=== PATIENT | male | born 1960 | race Caucasian/White ===

== ENCOUNTER 2020-05-23 16:56 | Outpatient (RCR) | payer MEDICARE, SELFPAY ==
[2020-05-23] MEDS: COVID-19 VACC, MRNA(PFIZER)/PF 30 MCG/0.3 ML SYRINGE IM (09:35)
[2020-06-13] MEDS: COVID-19 VACC, MRNA(PFIZER)/PF 30 MCG/0.3 ML SYRINGE IM (09:21)
== END 2020-08-15 23:59 ==
LOC: IMMUN 16:56
PROVIDERS: Visit Provider Family Medicine
DX: Z23 Encounter for immunization (principal)
CPT/HCPCS: 0001A; 0002A; 91300

== ENCOUNTER 2021-08-29 13:58 | Inpatient (IN) | payer OTHER, SELFPAY ==
[2021-08-29] VITALS (28 sets, daily range): BP systolic 94–146; BP diastolic 63–107; PULSE 63–82; RESP 12–20; TEMP 36.6; O2SAT 18–100; BMI 23.9; BMI 23.5
--- NOTE | 2021-08-29 14:18 | NURSING ---
NO OLD EKGS
--- NOTE | 2021-08-29 14:29 | NURSING ---
DR BARBARA RANGEL
--- NOTE | 2021-08-29 14:34 | EKG12_ITS ---
Test Reason : ELEVATED TROPONIN Blood Pressure : / mmHG Vent. Rate : 065 BPM Atrial Rate : 065 BPM P-R Int : 130 ms QRS Dur : 088 ms QT Int : 426 ms P-R-T Axes : 039 -01 115 degrees QTc Int : 443 ms Normal sinus rhythm Anteroseptal infarct , age undetermined T wave abnormality, consider lateral ischemia Abnormal ECG Confirmed by WHIT NIEVES, ANGELICA ([id number]), communications editor AKILAH WHEATLEY ([id number]) on 08/31/2021 11:29:04 AM Referred By: MONCHO Confirmed By:ANGELICA SHERMAN MD
--- NOTE | 2021-08-29 14:34 | EX.ED.DYSGE1 ---
HPI History of Present Illness Chief Complaint: Abn Labs Informant: patient Onset/Context/Timing Onset: Days (3) Timing: Intermittent Quality: Dull Location: Substernal Worsened by: Nothing Relieved by: Nothing Narrative Narrative: Patient presents with elevated troponin that was noticed today. Patient was having chest pain 2 days ago and yesterday. Patient went to the [facility] yesterday and had lab work and EKG ordered. Patient's troponin came back elevated over 34,000. Patient was instructed come to the emergency department. Currently, the patient denies any symptoms. He denies chest pain or shortness of breath. He denies nausea or vomiting. He denies any diaphoresis. Patient states he feels fine. PFSH PFSH Medical History no medical history Home Medications NK 08/29/21 [History Last Taken Unknown] Allergy/AdvReac Type Severity Reaction Status Date / Time No Known Allergies Allergy Verified 08/29/21 14:02 Social History Smoking Status: Current every day smoker tobacco type: cigarettes ROS ROS ED Constitutional Constitutional ED: Denies chills or fever(s) Eyes Eyes: Denies blurry vision or change in vision ENT ENT ED: Denies rhinorrhea or sore throat Cardiovascular Cardiovascular: Denies chest pain or palpitations Respiratory/Chest Respiratory/Chest: Denies cough or dyspnea Gastrointestinal Gastrointestinal: Denies nausea or vomiting Genitourinary Genitourinary ED: Denies dysuria or hematuria Musculoskeletal Musculoskeletal: Denies back pain or neck pain Integumentary Denies abscess or rash Neurologic Neurologic: Denies headache(s) or weakness Allergic/Immunologic Allergic/Immunologic ED: Denies mouth swelling or urticaria EXAM Physical Exam Const Vital Signs: 08/29/21 14:00 08/29/21 14:30 08/29/21 14:31 Temperature 98 F Temperature Source Temporal Pulse Rate 82 67 Respiratory Rate 16 12 Respiratory Effort Normal Non-Labored Blood Pressure 121/81 H 106/80 Blood Pressure Mean 94 88 Pulse Ox 99 96 Oxygen Delivery Method Room Air Room Air 08/29/21 14:35 08/29/21 14:44 08/29/21 14:46 Temperature 98 F Temperature Source Temporal Pulse Rate 67 Respiratory Rate 12 Respiratory Effort Blood Pressure 106/80 Blood Pressure Mean Pulse Ox 98 98 Oxygen Delivery Method Room Air Room Air Room Air Positive well nourished and well developed General Appearance ED: well developed HEENT Reports moist mucous membranes Neck supple and no JVD Resp normal respiratory effort and clear to auscultation bilaterally Cardio regular rate, regular rhythm and no murmurs GI normal to inspection, nondistended, normoactive bowel sounds and non-tender Palpation: soft Extremity normal to inspection General Extremety ED: Negative for edema or tenderness General Extremity: Negative for edema Neuro oriented x3, CN's II-XII intact bilaterally and no sensory deficits noted Sensorium / Orientation: alert Motor Exam: strength 5/5 throughout Psych mental status grossly normal Skin no rashes or lesions noted MDM MDM MDM Narrative Medical decision making narrative: EKG was obtained. On my interpretation, it shows a normal sinus rhythm with a rate of 65. There are Q waves noted in leads V1, V2, and V3. There is T wave inversion in leads V1 through V4 5. There is also T wave inversion in leads I and aVL. There is [address] elevation in leads V1, V2, and V3. TX interval, QRS interval, and QTc intervals were normal. [place] was normal. Troponin from earlier today was reviewed and was 34,712. Case was discussed with Dr. Amaral. He was in to see the patient. He will take the patient to the Stuffing Machine Operator. He recommended giving the patient heparin. Patient already had aspirin today. This was ordered. Case was discussed with the hospitalist. Lab Data Labs: Laboratory Results - last 24 hr 08/29/21 08/29/21 08/29/21 14:35 14:35 14:35 WBC 10.4 RBC 4.51 L Hgb 13.2 Hct 39.8 L MCV 88.2 MCH 29.3 MCHC 33.2 RDW Std Deviation 46.5 H RDW Coeff of Anthony 14.5 Plt Count 214 MPV 10.4 Immature Gran % (Auto) 0.300 Neut % (Auto) 54.0 Lymph % (Auto) 32.7 [place] % (Auto) 12.3 H Eos % (Auto) 0.3 Baso % (Auto) 0.4 Absolute Neuts (auto) 5.6 Absolute Lymphs (auto) 3.41 Nucleated RBC % 0 PT 13.5 INR 1.1 APTT 26.6 Sodium 136 Potassium 3.9 Chloride 105 Carbon Dioxide 26.0 Anion Gap 5 BUN 18 Creatinine 1.13 Estim Creat Clear Calc 67.78 Est GFR (MDRD) Af Amer 84 Est GFR (MDRD) Non-Af 70 BUN/Creatinine Ratio 15.9 Glucose 102 Calcium 9.0 Troponin I High Sens 52159 H* Critical Care Time Critical Care Time: Yes Critical care time (excluding procedures): 30-74 minutes (31), Including time spent:, Discussing w/Patient &/or Family/Computer Numerical Control Grinder, Discussing w/Consultants, Arranging Admission or Transfer and Performing Direct Patient Care at Bedside Discharge Plan Dx/Rx/DC Orders Clinical Impression: Non-ST elevated myocardial infarction (non-STEMI), Elevated troponin Disposition Disposition: Acute Care Hospital [facility] Discharge Date/Time: 08/29/21 14:51
[2021-08-29 14:44] LABS: Absolute Lymphocyte Count 3.41 X10^3/uL (0.83-4.51); Absolute Neutrophil Count 5.6 X10^3/uL (2.0-7.7); Basophil# 0.04 X10^3/uL; Basophil% 0.4 % (0-1); Eosinophil# 0.03 X10^3/uL; Eosinophils% 0.3 % (0-5); Hematocrit 39.8 % (40-54); Hemoglobin 13.2 g/dL (13.0-16.5); Lymphocyte # 3.41 X10^3/ul (0.83-4.51); Lymphocyte % 32.7 % (19-41); Mean Corp Hgb Conc 33.2 g/dL (32-36); Mean Corpuscular Hgb 29.3 pg (27.0-32.0); Mean Corpuscular Volume 88.2 fL (80-94); Mean Platelet Vol. 10.4 fl (6.2-12.0); Monocyte# 1.28 X10^3/uL; Monocyte% 12.3 % (0-10); NRBC Flagged by Analyzer 0 % (0-5); Neutrophil # 5.63 X10^3/uL (2.7-7.7); Platelet Count 214 K/mm3 (150-450); RBC Distribution Width CV 14.5 % (11.6-14.6); RBC Distribution Width SD 46.5 fl (35.1-43.9); Red Blood Count 4.51 M/mm3 (4.6-6.2); White Blood Count 10.4 K/mm3 (4.4-11.0)
[2021-08-29] MEDS: Heparin Injection (Vial) 5,000 UNIT/ML VIAL 4000 UNIT IV (14:44)
--- NOTE | 2021-08-29 14:47 | NURSING ---
PAIN MANAGEMENT SPECIALIST BELAL CHEST PAIN
--- NOTE | 2021-08-29 14:51 | NURSING ---
DR PINTO FOR DR SOLIS
[2021-08-29 14:59] LABS: International Normalized Ratio 1.1; Prothrombin Time (Protime)PT. 13.5 SECONDS (11.7-14.9)
[2021-08-29 15:00] LABS: Partial Thromboplast Time 26.6 Seconds (24.1-36.2)
[2021-08-29 15:59] LABS: Anion Gap 5 (5-15); BUN 18 mg/dL (7-18); BUN/Creat Ratio 15.9 RATIO (10-20); Chloride 105 mmol/L (98-107); Creatinine, Serum 1.13 mg/dL (0.70-1.30); EST Glomerular Filtration Rate 70 mL/min (>60); Est Glom Filt Rate - Afr Amer 84 mL/min (>60); Estimated Creatinine Clearance 67.78 ml/min; Glucose 102 mg/dL (74-106); Potassium 3.9 mmol/L (3.5-5.1); Sodium Level 136 mmol/L (136-145); Troponin-I HS 24659 pg/mL (3.0-78.0)
--- NOTE | 2021-08-29 16:46 | HP.PCM.HOS_ITS ---
HPI - General General Date of Admission: 08/29/21 Date of Service: 08/29/21 Chief Complaint: Abnormal blood work - 1 day Chest pain - 3 days HPI Narrative JAKE MISHRA, is a 60 M who presents with the above. Patient is a chronic smoker with no significant past medical history. He woke up 3 days ago at 5:30 AM with complaints of left-sided chest discomfort associated with diaphoresis. Patient decided to rest as he was concerned about hospital bills. The next day went to see a physician at [facility]. He was asked to do EKG and blood work. He came home to rest. This morning he came to do the blood work and then he went home. He was resting at home when he was told to come to the hospital because of abnormal blood work. His blood pressure is 121/81, heart rate 82, SPO2 99% on room air, temperature 98F. His WBC count was 10.4, hemoglobin 13.2, platelet count 214, sodium 136, potassium 3.9, chloride 105, carbon 26, BUN 18, creatinine 1.13. [place] [id number], repeat troponin was 89798. Total cholesterol 237, LDL 168, HDL 47. EKG showed Q waves in V1, V2, V3 with T wave inversions in V1, V2, V3 as well as lead I and aVL. Patient was taken emergently to the Competitive Athlete and findings showed subtotal occ lusion of the mid LAD at the site of the diagonal and high-grade 90% stenosis of the circumflex artery. He received aspirin and Brilinta as well as Integrilin and heparin. He had FACUNDO to the left circumflex artery as well as to stents overlapping to the subtotal LAD. There was evidence of diffuse disease in the distal portion of the LAD. Patient was seen in the ICU postprocedure. He denied any chest pain or dizziness or palpitations. He felt improved. [facility] Medical History (Updated 08/29/21 @ 17:31 by Jessie Dillard) Chest pain Myocardial infarct Smoker Substance abuse Medical History no medical history Home Medications NK 08/29/21 [History Last Taken Unknown] Allergy/AdvReac Type Severity Reaction Status Date / Time No Known Allergies Allergy Verified 08/29/21 14:02 Family History (Updated 08/29/21 @ 17:[address] Renita Castillo MD) Mother Colon cancer Heart disease Myocardial infarction Father CAD (coronary artery disease) Social History (Updated 08/29/21 @ 17:[address] Renita Castillo MD) household members: spouse Smoking Status: Current every day smoker tobacco type: cigarettes alcohol intake: former ROS ROS Narrative Constitutional: Denies: Anorexia, Chills, Fever, Night Sweats, Weight Change Eyes: Denies: Blurred vision, Cataracts, Conjunctivae Inflammation, Pain, Redness, Vision Change HEENT: Denies: Difficulty Hearing, Difficulty Swallowing, Head Aches, Hearing Changes, Sinus Congestion, Sinus Drainage Cardiovascular: See HPI Respiratory: Denies: Cough, Shortness of breath at rest, Sputum production Gastrointestinal: Denies: Abdominal Pain, Nausea, Vomiting Genitourinary: Denies: Dysuria Musculoskeletal: Denies: Joint Pain, Joint stiffness, Joint swelling, Joint Tenderness Skin: Denies: Rash, Wounds Neurological: Denies: Numbness, Tingling, Focal weakness Vital Signs Vital Signs Vital Signs: 08/29/21 14:00 08/29/21 14:30 08/29/21 14:31 Temperature 98 F Temperature Source Temporal Pulse Rate 82 67 Respiratory Rate 16 12 Respiratory Effort Normal Non-Labored Blood Pressure 121/81 H 106/80 Blood Pressure Mean 94 88 Pulse Ox 99 96 Oxygen Delivery Method Room Air Room Air 08/29/21 14:35 08/29/21 14:44 08/29/21 14:46 Temperature 98 F Temperature Source Temporal Pulse Rate 67 Respiratory Rate 12 Respiratory Effort Blood Pressure 106/80 Blood Pressure Mean Pulse Ox 98 98 Oxygen Delivery Method Room Air Room Air Room Air Weight Weight: 73.482 kg Body Mass Index (BMI) 23.9 Physical Exam Narrative Physical exam: General: Alert, Oriented x3, Cooperative, No apparent distress HEENT: Atraumatic Oral: Moist Mucosa Neck: Supple Lungs: Clear to auscultation Cardiovascular: HS I+II, regular, no murmurs Abdomen: Bowel Sounds Present, Soft, Non Tender Extremities: No edema, TR band over the right wrist Skin: No rashes, No breakdown Neurological: Grossly intact Psych/Mental Status: Appropriate Results Lab / Micro Data Result Diagrams: 08/29/21 14:35 08/29/21 14:35 Labs: Laboratory Results - last 24 hr 08/29/21 14:35: WBC 10.4, RBC 4.51 L, Hgb 13.2, Hct 39.8 L, MCV 88.2, MCH 29.3, MCHC 33.2, RDW Std Deviation 46.5 H, RDW Coeff of Anthony 14.5, Plt Count 214, MPV 10.4, Immature Gran % (Auto) 0.300, Neut % (Auto) 54.0, Lymph % (Auto) 32.7, [place] % (Auto) 12.3 H, Eos % (Auto) 0.3, Baso % (Auto) 0.4, Absolute Neuts (auto) 5.6, Absolute Lymphs (auto) 3.41, Nucleated RBC % 0 08/29/21 14:35: Sodium 136, Potassium 3.9, Chloride 105, Carbon Dioxide 26.0, Anion Gap 5, BUN 18, Creatinine 1.13, Estim Creat Clear Calc 67.78, Est GFR (MDRD) Af Amer 84, Est GFR (MDRD) Non-Af 70, BUN/Creatinine Ratio 15.9, Glucose 102, Calcium 9.0, Troponin I High Sens [id number] H* 08/29/21 14:35: PT 13.5, INR 1.1, APTT 26.6 Assessment & Plan Assessment/Plan (1) Non-ST elevated myocardial infarction (non-STEMI): (2) Elevated troponin: PLAN: Plan 1. Acute NSTEMI/unstable angina, in a chronic smoker No other risk factors such as diabetes or hypertension Patient presented with abnormal EKG and markedly elevated troponin Status post emergent cardiac catheterization and findings showed subtotal mid LAD as well as 90% stenosis of the left circumflex Status post FACUNDO to left circumflex and 2 FACUNDO to the LAD Patient will be monitored overnight in the ICU Continue on aspirin, Brilinta, statin, ENRIQUE inhibitor, beta-lara 2D echo in the a.m. Cardiology following 2. Hyperlipidemia, lipid profile from 08/29/2021 showed dyslipidemia Patient has been started on statins 3. Nicotine dependence, on replacement 3. DVT PPx- SCDs for now; possible Heparin SC in am if no bleeding risks exist Charges/Coding Visit Charges Inpatient E&M: 02872 Init Hosp L3
--- NOTE | 2021-08-29 16:59 | PCIREPORT_ITS ---
PCI Cardiac Cath Report PCI Report: PCI procedures; 1. Successful PCI of high-grade 90% proximal left circumflex with predilatation using 2 x 15 mm balloon, followed by placement of drug-eluting stent 3 x 26 mm/FACUNDO/[place] Postdilated with 3.5 x 12 mm NC Emerge MR balloon, with reduction of stenosis to 0% and maintenance of MAI-3 flow. 2. Successful PCI of subtotal 99% mid LAD at the site of the diagonal with MAI I flow, with predilatation using 2 x 20 mm emerge MR balloon, followed by placement of drug-eluting stent 2.5 x 35 mm FACUNDO/[place]rsiro-[place] Overlap with 2.25 x 26 mm drug-eluting stent/FACUNDO/[place]iro, postdilated with 3.25 x 50 mm NC balloon and reduction of stenosis from subtotal to 0% and improvement in MAI flow from MAI I to MAI-3 There is diffuse distal LAD disease which is left alone with MAI-3 flow. 3. Placement of TR band to close the right radial artery arteriotomy site. Preprocedure diagnosis; 60-year-old patient who presented with non-ST elevation AL Evidently patient had ongoing symptoms of chest pain for 2 days, the patient went to the [facility] where he been evaluated by EKG as well as cardiac enzyme high sensitive troponin with significant elevated more than 3000 and was asked to come over to the ER here at the [facility] where an EKG showed evidence of age indeterminate anteroseptal AL with clear evidence of Q-wave noted in V1 V2 V3 and T wave inversion. Patient had a history of smoking He does not have any hypertension or diabetes and no history of coronary artery disease Consent; Risk and benefit of procedure explained detail informed consent obtained Diagnostic and interventional equipment used 1. And 6 Norwegian trauma sheath placed in the right radial artery 2. Cocktail of verapamil, heparin as nitroglycerin was given through the right common radial artery sheath 3. Diagnostic catheter 5 Norwegian [place] catheter 4. 5 Norwegian pigtail catheter 5. 6 Norwegian 300 XB guide catheter 6. 0.014 Ht whisper MS straight 190 cm guidewire 7. 0.014 run-through extra floppy 180 cm straight wire 8. 0.035 to 60 cm J exchange wire Interventional balloons and stents used; 1. 2 x 15 mm balloon. 2. 2 x 20 mm balloon emerge 3. 3 x 26 drug-eluting stent 4. 2.5 x 35 mm drug-eluting stent 6. 2.25 x 26 mm drug-eluting stent 7. 3 x 25 mm x 50 mm NC Emerge balloon 8. 3.5 x 12 mm NC balloon. Procedure in detail; Patient brought as an emergency to the Foundation Drill Operator Helper, Access obtained from the right radial artery, and then we proceed with a diagnostic catheter 5 Norwegian [place] catheter advanced to the ascending order under fluoroscopic guidance, cannulated the left main without difficulty multiple views left coronary system obtain In the same catheter was used to cannulate the right coronary ostium and 2 views for the RCA including MALAGASY and GOLDBERG cranial's were obtained Following this angiogram we were studied Identify the culprit as subtotal mid LAD at the site of the diagonal and high- grade 90% stenosis of the circumflex artery Patient was given heparin and ACT level acceptable Also patient started on Integrilin to bolus with Integrilin infusion creatinine clearance 70 with a serum creatinine 1.13 And patient was given aspirin and Brilinta 180 mg. In the Foundation Drill Operator Helper Then will proceed with interventional guide catheter using 6 Norwegian XB 3 oh. With the guidewire across the lesion in the proximal left circumflex followed by predilatation and placement of drug-eluting stent and postdilated using 3. 5 mm NC balloon He had excellent result to the left circumflex then we will proceed with the whisper wire across the lesion in the subtotal LAD predilate the lesion and placed 2 stents 2.5 x 35 overlap with 2.25 x 26 postdilated with 3 oh NC balloon and achieve good result and improvement of MAI flow from MAI I to MAI-3. There is a diffuse disease in the distal portion of the LAD which was left alone Pigtail catheter used and LVEDP measured which is elevated to 23 Patient was given Lasix IV. Conclusion and recommendations; 1. This is a very high risk patient with a high-grade lesion involving the LAD and a diagonal subtotal which is a culprit for his myocardial infarction However at the same time he had a high-grade lesion involving the circumflex therefore we decided to proceed with two-vessel PCI and to achieved excellent result With no complication in the Foundation Drill Operator Helper. 2. Patient will continue on Integrilin infusion over the night and intensive care unit 3. We will continue on dual antiplatelet therapy Brilinta/aspirin for 1 year 4. Patient will be scheduled for echocardiogram and series of cardiac enzymes with high sensitive troponin 5. We will start the patient on high-dose statin, beta-lara carvedilol and ENRIQUE inhibitor 6. Patient will be scheduled for phase 1 cardiac rehab 7. Patient advised cessation of smoking 8. Patient to follow-up with cardiovascular team at [facility] for continuation of cardiac care. No complication in the Foundation Drill Operator Helper Dipika Amaral MD,FACC,[facility]
--- NOTE | 2021-08-29 17:00 | EKG12_ITS ---
Test Reason : AM EKG Blood Pressure : / mmHG Vent. Rate : 067 BPM Atrial Rate : 067 BPM P-R Int : 130 ms QRS Dur : 090 ms QT Int : 408 ms P-R-T Axes : 054 020 110 degrees QTc Int : 431 ms Normal sinus rhythm Anteroseptal infarct , age undetermined T wave abnormality, consider lateral ischemia Abnormal ECG Confirmed by WHIT NIEVES, ANGELICA ([id number]), metropolitan editor AKILAH WHEATLEY ([id number]) on 08/31/2021 11:49:15 AM Referred By: MILLIE Confirmed By:ANGELICA SHERMAN MD
[2021-08-29] MEDS: 0.9% Normal Saline 1,000 ML 75 ML IV (18:00)
[2021-08-29 18:31] LABS: Hemoglobin A1c 5.8 % (3.8-5.6)
[2021-08-29] MEDS: Acetaminophen 325 MG Tablet 650 MG PO (19:28)
[2021-08-29] MEDS: Carvedilol 3.125 MG TABLET PO (20:50)
[2021-08-29] MEDS: Atorvastatin Calcium 40 MG Tablet PO (20:50)
[2021-08-30] VITALS (26 sets, daily range): BP systolic 91–122; BP diastolic 60–85; PULSE 57–75; RESP 14–21; TEMP 36.2–36.8; O2SAT 93–100
[2021-08-30 03:34] LABS: Absolute Lymphocyte Count 3.03 X10^3/uL (0.83-4.51); Absolute Neutrophil Count 4.2 X10^3/uL (2.0-7.7); Basophil# 0.03 X10^3/uL; Basophil% 0.4 % (0-1); Eosinophil# 0.08 X10^3/uL; Hematocrit 34.2 % (40-54); Hemoglobin 11.6 g/dL (13.0-16.5); Lymphocyte # 3.03 X10^3/ul (0.83-4.51); Mean Corp Hgb Conc 33.9 g/dL (32-36); Mean Corpuscular Volume 88.4 fL (80-94); Mean Platelet Vol. 10.5 fl (6.2-12.0); Monocyte# 0.85 X10^3/uL; Monocyte% 10.4 % (0-10); NRBC Flagged by Analyzer 0 % (0-5); Neutrophil # 4.19 X10^3/uL (2.7-7.7); Platelet Count 188 K/mm3 (150-450); RBC Distribution Width CV 14.6 % (11.6-14.6); RBC Distribution Width SD 47.2 fl (35.1-43.9); Red Blood Count 3.87 M/mm3 (4.6-6.2); White Blood Count 8.2 K/mm3 (4.4-11.0)
[2021-08-30 03:52] LABS: ALB/GLOB Ratio 0.8 RATIO (0.9-2.4); AST(SGOT) 135 U/L (15-37); Alanine Aminotransfer ALT/SGPT 77 U/L (16-61); Albumin, Serum 2.7 g/dL (3.2-5.0); Alkaline Phosphatase 72 U/L (45-117); Anion Gap 6 (5-15); BUN 21 mg/dL (7-18); BUN/Creat Ratio 21.6 RATIO (10-20); Chloride 105 mmol/L (98-107); Creatinine, Serum 0.97 mg/dL (0.70-1.30); EST Glomerular Filtration Rate 83 mL/min (>60); Est Glom Filt Rate - Afr Amer 100 mL/min (>60); Estimated Creatinine Clearance 81.53 ml/min; Globulin 3.3 g/dL (2.2-4.2); Glucose 137 mg/dL (74-106); Potassium 3.6 mmol/L (3.5-5.1); Sodium Level 136 mmol/L (136-145)
--- NOTE | 2021-08-30 07:31 | CRPHASE1_ITS ---
Patient Communication PHII Cardiac Rehab Discussed with Patient:: Yes Guide to Cardiac Rehab Given to Patient:: Yes Cardiac Rehab Facility Choice List Given to Patient:: Yes Choice Program [facility] PHII:: Communication Given to CR Machine Tool Mechanic:: Dipika Amaral Phase II Cardiac Rehab:: Yes Sessions:: 36 sessions - 3 days/wk, 12 weeks Cardiac Rehabilitation Info Cardiac Rehabilitation Program Information: Cardiac Rehabilitation is important for patients like you who are recovering from a heart problem. Cardiac rehabilitation programs are recognized as integral to the continued care of the patient with coronary heart disease. The cardiac rehabilitation program is designed to optimize a patient's physical, psychological, and social functioning. Health sub acute care nurse work in cardiac rehabilitation programs and assist you with getting the treatments you need to get stronger and healthier - like exercise, healthy eating habits, and medications. Cardiac rehabilitation has been show to help people with heart problems live longer and have better life enjoyment than people who do not go to cardiac rehabilitation. Please contact the Cardiac Rehabilitation Program at [facility] at in two weeks if you have not heard from them.
--- NOTE | 2021-08-30 07:32 | CRPH1.INST_ITS ---
General Education CAD and cardiac anatomy and function:: Patient communicates acknowledgment, Needs reinforcement Explanation of diagnoses and procedures:: Patient communicates acknowledgment, Needs reinforcement Sign/Symptoms of OK:: Patient communicates acknowledgment, Needs reinforcement Antiplatelet therapy: Patient communicates acknowledgment, Needs reinforcement Proper use of NTG-SL: Patient communicates acknowledgment, Needs reinforcement Emergency procedures and activation of EMS: Patient communicates acknowledgment, Needs reinforcement Compliance of all prescribed medications: Patient communicates acknowledgment, Needs reinforcement Smoking Patient Nicotine/Smoking Risk Factors Are:: Cigarettes Recommendations Include:: Smoking cessation strategies/Smoking packet, Participation in a smoking cessation program Nicotine/Smoking Response Code:: Patient communicates acknowledgment, Needs re inforcement Dyslipidemia Patient Dyslipidemia Risk Factors Are:: Total Cholesterol, LDL Recommendations Include:: Lipid profile provided, Reviewed NCEP/ATP guidelines, Therapeutic Lifestyle Change dietary guidelines Dyslipidemia Response Code:: Patient communicates acknowledgment, Needs reinforcement Overweight/Obesity Patient Overweight/Obesity Risk Factors Are:: BMI Normal [18-25 & < 65 years old] Recommendations Include:: Weight loss of 5-10%, Reduced calorie diet, Exercise 5-7 times/week Overweight/Obesity:: Patient communicates acknowledgment, Needs reinforcement Hypertension Patient Hypertension Risk Factors Are:: No documented hx of HTN Heart Disease Patient Heart Disease Risk Factors Are:: Family history of heart disease < 65 years old, Previous cardiac event Recommendations Include:: Educated family members of their risk Heart Disease Response Code:: Patient communicates acknowledgment, Needs reinforcement Diabetes Patient Diabetes Risk Factors Are:: No documented hx of diabetes Sedentary Patient Sedentary Risk Factors Are:: Lack of regular exercise Recommendations Include:: Aerobic exercise 5-7 times/week for 20-30 minutes continuously, Benefits of regular exercise, Discussed home walking program, Monitored Outpatient Cardiac Rehab Sedentary Response Code:: Patient communicates acknowledgment, Needs reinforcement Stress Patient Stress Risk Factors Are:: Patient denies stress as a risk factor Recommendations Include:: Identification of stressors, and assessment of coping skills, Stress management techniques Stress Response Code:: Patient communicates acknowledgment, Needs reinforcement
--- NOTE | 2021-08-30 10:00 | EKG12_ITS ---
Test Reason : AM EKG Blood Pressure : / mmHG Vent. Rate : 069 BPM Atrial Rate : 069 BPM P-R Int : 134 ms QRS Dur : 090 ms QT Int : 362 ms P-R-T Axes : 057 015 -25 degrees QTc Int : 387 ms Normal sinus rhythm Low voltage QRS (Limb Leads) Mahesh-Septal TX, age undetermined T-wave abnormality, consider myocardial ischemia-lateral Confirmed by WHIT NIEVES, ANGELICA ([id number]), script editor AKILAH WHEATLEY ([id number]) on 09/03/2021 8:34:36 AM Referred By: MILLIE Confirmed By:ANGELICA SHERMAN MD
--- NOTE | 2021-08-30 10:02 | PCM.DC ---
Discharge Instructions Diet Discharge Diet: Low fat / Low cholesterol and 2000 mg Sodium Diet Activity Discharge Activity: Return to Normal Activity Follow Up Care Test Results: Test results from this visit will be discussed in further detail at your follow-up appointment, if applicable. Discharge Plan Admission Admit Date/Time: 08/29/21 16:42 Primary Reason for Your Visit: Acute NSTEMI Attending Provider: Renita Castillo Primary Care Provider: [facility],Ester Pardo Instructions Additional Instructions / Restrictions: Take all your medications as precribed. You are strongly advised to quit smoking. Follow-up with cardiac rehab as scheduled Discharge Orders/Prescriptions Prescriptions: New atorvastatin 40 mg Tablet 40 mg PO QHS 30 Days Qty: 30 0RF aspirin 81 mg Tablet,Delayed Release (Dr/Ec) 81 mg PO DAILYCM 30 Days Qty: 30 0RF carvedilol 3.125 mg Tablet 3.125 mg PO BID 30 Days Qty: 60 0RF nicotine 21 mg/24 hr Patch 24 Hour 21 mg transdermal DAILY 28 Days Qty: 28 0RF Brilinta 90 mg Tablet 90 mg PO BID 30 Days Qty: 60 0RF Referrals / Follow Up: Miguel Webb MD [STAFF PHYSICIAN] - [facility] - Within 1 Week Disposition Disposition (needs filled in before D/C Order can be placed): Home, Self Care
--- NOTE | 2021-08-30 10:03 | CON.PCM.CA_ITS ---
Documented by User: CORY Coyle 08/30/21 12:53 Assessment & Plan Assessment/Plan (1) Non-ST elevated myocardial infarction (non-STEMI): (2) Elevated troponin: (3) Hyperlipidemia: PLAN: Plan * Will continue to trend troponins * Will obtain echocardiogram to evaluate LV function * Patient will continue with his aspirin, Brilinta, atorvastatin, carvedilol, lisinopril * it is noted that patient did have hyperlipidemia based on labs that were done prior to his current visit, patient was started on atorvastatin * Strongly encouraged smoking cessation * We will follow-up with patient on an outpatient basis, would also like to refer to cardiac rehab HPI Consult Data Date of Consult: 08/29/21 HPI Narrative HPI Narrative: JAKE MISHRA, is a 60 M who presented to the emergency room for an elevated troponin. Patient had noted that the prior 2 days he had had chest discomfort. He does not have any chest pain today however he did go to [facility] yesterday and had lab work and an EKG done. Troponin is elevated at greater than 34,000. Patient was instructed to come to the emergency room for this. He does not have any chest pain, shortness of breath, nausea vomiting, diaphoresis. He states that today he feels fine. EKG on presentation demonstrated Q waves in V1, V2 and V3. T wave inversion in leads V1 through V4 and 5. There is also T wave inversion in leads I and aVL. There is a [address] elevation in V1, V2 and V3. Patient was taken to the [facility]. He was noted to have greater than 90% lesion of the proximal circumflex which was stented, he had a subtotal 99% occlusion of the mid LAD at the site of the diagonal this was stented. No disease noted in his RCA. Prior to patient's hospital stay he does not have any significant medical history except for tobacco abuse. [facility] Medical History (Updated 08/30/21 @ 12:50 by CORY Coyle) Atherosclerotic heart disease of [place] coronary artery without angina pectoris Chest pain Hyperlipidemia Myocardial infarct Presence of stent in coronary artery (~08/29/21) Smoker Substance abuse Medical History no medical history Home Medications aspirin 81 mg tablet,delayed release 81 mg PO DAILYCM 30 days #30 tabs 08/30/21 [Rx Last Taken Unknown] atorvastatin 40 mg tablet 40 mg PO QHS 30 days #30 tabs 08/30/21 [Rx Last Taken Unknown] carvedilol 3.125 mg tablet 3.125 mg PO BID 30 days #60 tabs 08/30/21 [Rx Last Taken Unknown] nicotine 21 mg/24 hr daily transdermal patch 21 mg transdermal DAILY 28 days #28 ea 08/30/21 [Rx Last Taken Unknown] ticagrelor 90 mg tablet (Brilinta) 90 mg PO BID 30 days #60 tabs 08/30/21 [Rx Last Taken Unknown] Allergy/AdvReac Type Severity Reaction Status Date / Time No Known Allergies Allergy Verified 08/29/21 14:02 Family History (Updated 08/29/21 @ 17:[address] Renita Castillo MD) Mother Colon cancer Heart disease Myocardial infarction Father CAD (coronary artery disease) Surgical History (Updated 08/30/21 @ 08:18 by Irasema Chang) Presence of coronary angioplasty implant and graft (~08/29/21) Social History (Updated 08/29/21 @ 17:[address] Renita Castillo MD) household members: spouse Smoking Status: Current every day smoker tobacco type: cigarettes alcohol intake: former ROS ROS Narrative ROS negative except what is described above. Physical Exam Const alert, oriented x3, no apparent distress and healthy appearing HEENT normocephalic, head/scalp atraumatic, hearing grossly normal bilaterally, external ears normal, external nose normal and moist oral mucous membranes Eyes PERRL, EOMs intact bilaterally, conjunctivae normal and no scleral icterus Neck no lymphadenopathy, supple and no JVD Resp normal respiratory effort and clear to auscultation bilaterally Cardio regular rate, regular rhythm, S1 normal heart sound, S2 normal heart sound, no murmurs, no rub, no gallops, no clicks, no JVD and peripheral pulses 2+ throughout GI normal to inspection, nondistended, normoactive bowel sounds, soft to palpation, non-tender and non-distended Extremity normal to inspection, normal capillary refill, no clubbing, cyanosis or edema and no pedal edema Neuro oriented x3, CN's II-XII intact bilaterally, moves all extremities and no focal motor deficits Psych cooperative and affect normal Risk Stratification Risk Stratification Applicable: Yes Age >/= 65: No >/= 3 CAD Risk Factors (HTN, HLD, DM, family hx of CAD, or current smoker): Yes Aspirin Use in the Past 7 Days: No Severe Angina (>/= episodes in 24 hours): No EKG ST Changes >/= 0.5mm: Yes Positive Cardiac Marker: Yes MAI Risk Stratification Score: 3 MAI % Risk: 13% Risk Charges/Coding Visit Charges Office Visits / Consults: [id number] IP Consult L4 Objective Data Vital Signs: Vital Signs Temp Pulse Resp BP Pulse Ox 97.6 F L 68 16 107/76 97 08/30/21 04:00 08/30/21 08:39 08/30/21 08:00 08/30/21 08:00 08/30/21 08:00 Oxygen Delivery Method Room Air Weight: 164 lb 0.383 oz Body Mass Index (BMI) 23.5 Intake & Output: Intake and Output for Last 24 Hours 08/28/21 08/29/21 08/30/21 23:59 23:59 23:59 Intake Total 611.98 / 611.98 1333.33 / 1333.33 Balance 611.98 / 611.98 1333.33 / 1333.33 Lab / Micro Data Result Diagrams: 08/30/21 03:26 08/30/21 03:26 Labs: Laboratory Results - last 24 hr 08/29/21 14:35: WBC 10.4, RBC 4.51 L, Hgb 13.2, Hct 39.8 L, MCV 88.2, MCH 29.3, MCHC 33.2, RDW Std Deviation 46.5 H, RDW Coeff of Anthony 14.5, Plt Count 214, MPV 10.4, Immature Gran % (Auto) 0.300, Neut % (Auto) 54.0, Lymph % (Auto) 32.7, Bledsoe % (Auto) 12.3 H, Eos % (Auto) 0.3, Baso % (Auto) 0.4, Absolute Neuts (auto) 5.6, Absolute Lymphs (auto) 3.41, Nucleated RBC % 0 08/29/21 14:35: Sodium 136, Potassium 3.9, Chloride 105, Carbon Dioxide 26.0, Anion Gap 5, BUN 18, Creatinine 1.13, Estim Creat Clear Calc 67.78, Est GFR (MDRD) Af Amer 84, Est GFR (MDRD) Non-Af 70, BUN/Creatinine Ratio 15.9, Glucose 102, Calcium 9.0, Troponin I High Sens [id number] H* 08/29/21 14:35: PT 13.5, INR 1.1, APTT 26.6 08/29/21 14:35: Hemoglobin A1c 5.8 H 08/29/21 17:00: Troponin I High Sens [id number] H* 08/29/21 20:55: Troponin I High Sens [id number] H* 08/30/21 03:26: WBC 8.2, RBC 3.87 L, Hgb 11.6 L, Hct 34.2 L, MCV 88.4, MCH 30.0, MCHC 33.9, RDW Std Deviation 47.2 H, RDW Coeff of Anthony 14.6, Plt Count 188, MPV 10.5, Immature Gran % (Auto) 0.200, Neut % (Auto) 51.0, Lymph % (Auto) 37.0, Bledsoe % (Auto) 10.4 H, Eos % (Auto) 1.0, Baso % (Auto) 0.4, Absolute Neuts (auto) 4.2, Absolute Lymphs (auto) 3.03, Nucleated RBC % 0 08/30/21 03:26: Sodium 136, Potassium 3.6, Chloride 105, Carbon Dioxide 25.0, Anion Gap 6, BUN 21 H, Creatinine 0.97, Estim Creat Clear Calc 81.53, Est GFR (MDRD) Af Amer 100, Est GFR (MDRD) Non-Af 83, BUN/Creatinine Ratio 21.6 H, Gluco se 137 H, Calcium 8.0 L, Total Bilirubin 0.30, AST 135 H, ALT 77 H, Alkaline Phosphatase 72, Total Protein 6.0 L, Albumin 2.7 L, Globulin 3.3, Albumin/Globulin Ratio 0.8 L Cardiology Labs/Tests 08/29/21 14:35: WBC 10.4, RBC 4.51 L, Hgb 13.2, Hct 39.8 L, MCV 88.2, MCH 29.3, MCHC 33.2, Plt Count 214, MPV 10.4, Immature Gran % (Auto) 0.300, Neut % (Auto) 54.0, Lymph % (Auto) 32.7, [place] % (Auto) 12.3 H, Eos % (Auto) 0.3, Baso % (Auto) 0.4, Absolute Neuts (auto) 5.6, Nucleated RBC % 0 08/29/21 14:35: Sodium 136, Potassium 3.9, Chloride 105, Carbon Dioxide 26.0, Anion Gap 5, BUN 18, Creatinine 1.13, Est GFR (MDRD) Af Amer 84, Est GFR (MDRD) Non-Af 70, BUN/Creatinine Ratio 15.9, Glucose 102, Calcium 9.0 08/29/21 14:35: PT 13.5, INR 1.1, APTT 26.6 08/29/21 14:35: Hemoglobin A1c 5.8 H 08/30/21 03:26: WBC 8.2, RBC 3.87 L, Hgb 11.6 L, Hct 34.2 L, MCV 88.4, MCH 30.0, MCHC 33.9, Plt Count 188, MPV 10.5, Immature Gran % (Auto) 0.200, Neut % (Auto) 51.0, Lymph % (Auto) 37.0, [place] % (Auto) 10.4 H, Eos % (Auto) 1.0, Baso % (Auto) 0.4, Absolute Neuts (auto) 4.2, Nucleated RBC % 0 08/30/21 03:26: Sodium 136, Potassium 3.6, Chloride 105, Carbon Dioxide 25.0, Anion Gap 6, BUN 21 H, Creatinine 0.97, Est GFR (MDRD) Af Amer 100, Est GFR (MDRD) Non-Af 83, BUN/Creatinine Ratio 21.6 H, Glucose 137 H, Calcium 8.0 L, Total Bilirubin 0.30 Rhythm: EKG: ECHO: Stress Test: Cardiac Cath: PCI: CT Surgery: Holter monitor: EPS: PPM: CXR: Chest CT Scan: Documented by User: Dr. Dipika Amaral MD 08/30/21 13:30 Assessment & Plan Assessment/Plan (1) Non-ST elevated myocardial infarction (non-STEMI): (2) Elevated troponin: (3) Hyperlipidemia: PLAN: Plan * I independently reviewed the clinical presentation, EKGs, cardiac telemetry, cardiac biomarkers and current medication Patient has anterior OR, age indeterminate with a clinical diagnosis of non-ST elevation OR Underwent urgent cardiac catheterization with PCI of LAD and the high-grade proximal left circumflex artery. Patient has been admitted to CCU and we will continue to monitor and follow-up clinically. Will continue to trend troponins * Will obtain echocardiogram to evaluate LV function * Patient will continue with his aspirin, Brilinta, atorvastatin, carvedilol, lisinopril * it is noted that patient did have hyperlipidemia based on labs that were done prior to his current visit, patient was started on atorvastatin * Strongly encouraged smoking cessation * We will follow-up with patient on an outpatient basis, would also like to refer to cardiac rehab HPI Consult Data Date of Consult: 08/30/21 [facility] Medical History (Updated 08/30/21 @ 12:50 by Irasema Barraza PA, PA) Atherosclerotic heart disease of [place] coronary artery without angina pectoris Chest pain Hyperlipidemia Myocardial infarct Presence of stent in coronary artery (~08/29/21) Smoker Substance abuse Medical History no medical history Home Medications aspirin 81 mg tablet,delayed release 81 mg PO DAILYCM 30 days #30 tabs 08/30/21 [Rx Last Taken Unknown] atorvastatin 40 mg tablet 40 mg PO QHS 30 days #30 tabs 08/30/21 [Rx Last Taken Unknown] carvedilol 3.125 mg tablet 3.125 mg PO BID 30 days #60 tabs 08/30/21 [Rx Last Taken Unknown] nicotine 21 mg/24 hr daily transdermal patch 21 mg transdermal DAILY 28 days #28 ea 08/30/21 [Rx Last Taken Unknown] ticagrelor 90 mg tablet (Brilinta) 90 mg PO BID 30 days #60 tabs 08/30/21 [Rx Last Taken Unknown] Allergy/AdvReac Type Severity Reaction Status Date / Time No Known Allergies Allergy Verified 08/29/21 14:02 Family History (Updated 08/29/21 @ 17:[address] Renita Castillo MD) Mother Colon cancer Heart disease Myocardial infarction Father CAD (coronary artery disease) Surgical History (Updated 08/30/21 @ 08:18 by Irasema Chang) Presence of coronary angioplasty implant and graft (~08/29/21) Social History (Updated 08/29/21 @ 17:[address] Renita Castillo MD) household members: spouse Smoking Status: Current every day smoker tobacco type: cigarettes alcohol intake: former Risk Stratification Age >/= 65: No MAI Risk Stratification Score: 3 MAI % Risk: 13% Risk Lab / Micro Data Result Diagrams: 08/30/21 03:26 08/30/21 03:26
--- NOTE | 2021-08-30 10:40 | DS.PCM_ITS ---
Providers Date of Admission: 08/29/21 Date of Discharge: 08/31/21 Primary Care Physician: [facility] Reason For Visit: ACUTE NSTEMI Diagnosis Discharge Diagnosis (1) Non-ST elevated myocardial infarction (non-STEMI): Status: Acute Code(s): I21.4 - Non-ST elevation (NSTEMI) myocardial infarction (2) Elevated troponin: Status: Acute Code(s): R77.8 - Other specified abnormalities of plasma proteins Medications at Discharge Home Medications aspirin 81 mg tablet,delayed release 81 mg PO DAILYCM 30 days #30 tabs 08/30/21 atorvastatin 40 mg tablet 40 mg PO QHS 30 days #30 tabs 08/30/21 carvedilol 3.125 mg tablet 3.125 mg PO BID 30 days #60 tabs 08/30/21 nicotine 21 mg/24 hr daily transdermal patch 21 mg transdermal DAILY 28 days #28 ea 08/30/21 ticagrelor 90 mg tablet (Brilinta) 90 mg PO BID 30 days #60 tabs 08/30/21 lisinopril 2.5 mg tablet 2.5 mg PO DAILY 30 days #30 tabs 08/31/21 Hospital Course Operations None Procedures 2-D Echocardiogram and Cardiac catheterization Summary of Care Provided Minutes Spent on Discharge: 40 Hospital Course: 60-year-old male, chronic smoker, with no significant past medical history who comes in with abnormal blood work and chest discomfort. Patient had complained of chest discomfort 3 days prior to admission. He went the next day to [facility] where he was asked to do EKG and blood work. His EKG showed Q waves in V1, V2, V3 with T wave inversions in V1, V2, V3 as well as lead I and aVL. [place] troponin [place] [address]. Cardiology was consulted from the ED. Patient was taken emergently to the cardiac computer lab aide. ?Findings showed subtotal occlusion of the mid LAD at the site of the diagonal and high-grade 90% stenosis of the circumflex artery.? He received aspirin and Brilinta as well as Integrilin and heparin.? He had FACUNDO to the left circumflex artery as well as to stents overlapping to the subtotal LAD.? There was evidence of diffuse disease in the distal portion of the LAD. Patient was monitored subsequently in the ICU. No acute events overnight. He was continued on aspirin, Brilinta, statin, lisinopril, Coreg. 2D echo showed EF of 40%. Patient to follow-up with cardiology and cardiac rehab in the outpatient. He knows to follow-up with his primary care doctor within 1 to 2 weeks. Physical Exam Narrative Physical exam: General: Alert, Oriented x3, Cooperative, No apparent distress HEENT: Atraumatic Oral: Moist Mucosa Neck: Supple Lungs: Clear to auscultation Cardiovascular: HS I+II, regular, no murmurs Abdomen: Bowel Sounds Present, Soft, Non Tender Extremities: No edema Skin: No rashes, No breakdown Neurological: Grossly intact Psych/Mental Status: Appropriate Weight / BMI Weight Weight: 74.4 kg Body Mass Index (BMI) 23.5 ABG / Lab / Microbiology Data Result Diagrams: 08/31/21 04:10 08/31/21 04:10 Laboratory: Laboratory Results - last 24 hr 08/29/21 14:35: WBC 10.4, RBC 4.51 L, Hgb 13.2, Hct 39.8 L, MCV 88.2, MCH 29.3, MCHC 33.2, RDW Std Deviation 46.5 H, RDW Coeff of Anthony 14.5, Plt Count 214, MPV 10.4, Immature Gran % (Auto) 0.300, Neut % (Auto) 54.0, Lymph % (Auto) 32.7, Wise % (Auto) 12.3 H, Eos % (Auto) 0.3, Baso % (Auto) 0.4, Absolute Neuts (auto) 5.6, Absolute Lymphs (auto) 3.41, Nucleated RBC % 0 08/29/21 14:35: Sodium 136, Potassium 3.9, Chloride 105, Carbon Dioxide 26.0, Anion Gap 5, BUN 18, Creatinine 1.13, Estim Creat Clear Calc 67.78, Est GFR (MDRD) Af Amer 84, Est GFR (MDRD) Non-Af 70, BUN/Creatinine Ratio 15.9, Glucose 102, Calcium 9.0, Troponin I High Sens [id number] H* 08/29/21 14:35: PT 13.5, INR 1.1, APTT 26.6 08/29/21 14:35: Hemoglobin A1c 5.8 H 08/29/21 17:00: Troponin I High Sens [id number] H* 08/29/21 20:55: Troponin I High Sens [id number] H* 08/30/21 03:26: WBC 8.2, RBC 3.87 L, Hgb 11.6 L, Hct 34.2 L, MCV 88.4, MCH 30.0, MCHC 33.9, RDW Std Deviation 47.2 H, RDW Coeff of Anthony 14.6, Plt Count 188, MPV 10.5, Immature Gran % (Auto) 0.200, Neut % (Auto) 51.0, Lymph % (Auto) 37.0, Wise % (Auto) 10.4 H, Eos % (Auto) 1.0, Baso % (Auto) 0.4, Absolute Neuts (auto) 4.2, Absolute Lymphs (auto) 3.03, Nucleated RBC % 0 08/30/21 03:26: Sodium 136, Potassium 3.6, Chloride 105, Carbon Dioxide 25.0, Anion Gap 6, BUN 21 H, Creatinine 0.97, Estim Creat Clear Calc 81.53, Est GFR (MDRD) Af Amer 100, Est GFR (MDRD) Non-Af 83, BUN/Creatinine Ratio 21.6 H, Glucose 137 H, Calcium 8.0 L, Total Bilirubin 0.30, AST 135 H, ALT 77 H, Alkaline Phosphatase 72, Total Protein 6.0 L, Albumin 2.7 L, Globulin 3.3, Albumin/Globulin Ratio 0.8 L D/C Instructions Discharge Diet: Low fat / Low cholesterol and 2000 mg Sodium Diet Meaningful Use Info Meaningful Use Diagnoses (Choose all that apply): AMI AMI/Post PCI/Angioplasty Aspirin given w/in 24hrs of arrival?: Yes ASA at discharge?: Yes Antiplatelet Therapy at Discharge:: Yes Statins at discharge?: Yes Francisco/ARB at discharge?: Yes Beta Marcio at discharge?: Yes Done w/ Acute DC measure.: Yes Documented LVEF (%): 40 Discharge Plan Admission Admit Date/Time: 08/29/21 16:42 Primary Reason for Your Visit: Acute NSTEMI Attending Provider: Renita Castillo Primary Care Provider: [facility] Ester Wade Instructions Additional Instructions / Restrictions: Take all your medications as precribed. You are strongly advised to quit smoking. Follow-up with cardiac rehab as scheduled Discharge Orders/Prescriptions Prescriptions: New atorvastatin 40 mg Tablet 40 mg PO QHS 30 Days Qty: 30 0RF aspirin 81 mg Tablet,Delayed Release (Dr/Ec) 81 mg PO DAILYCM 30 Days Qty: 30 0RF carvedilol 3.125 mg Tablet 3.125 mg PO BID 30 Days Qty: 60 0RF nicotine 21 mg/24 hr Patch 24 Hour 21 mg transdermal DAILY 28 Days Qty: 28 0RF Brilinta 90 mg Tablet 90 mg PO BID 30 Days Qty: 60 0RF lisinopril 2.5 mg Tablet 2.5 mg PO DAILY 30 Days Qty: 30 0RF Referrals / Follow Up: Miguel Webb MD [STAFF PHYSICIAN] - 09/13/21 9:00 am [facility],Ester Pardo [Primary Care Provider] - Within 1 Week Disposition Disposition (needs filled in before D/C Order can be placed): Home, Self Care Charges/Coding Visit Charges Inpatient E&M: 63351 Disch Hosp
[2021-08-30] MEDS: Aspirin E.C. 81 MG Tablet PO (10:44)
[2021-08-30] MEDS: Lisinopril 2.5 MG Tablet PO (10:44)
[2021-08-30] MEDS: Carvedilol 3.125 MG TABLET PO ×2 (10:44→21:10)
--- NOTE | 2021-08-30 11:50 | ECHOD_ITS ---
Reason For Study: POST NSTEMI Procedure This was a 2D Doppler, Color Flow transthoracic echocardiogram. Exam performed portable in ICU/CCU. Left Ventricle Normal left ventricle. The estimated ejection fraction is 40% %. Right Ventricle Normal right ventricle. Normal systolic function. Atria Normal left atrium. Normal right atrium. Mitral Valve The mitral valve is structurally normal. No prolapse or stenosis seen. Trivial mitral valve insufficiency. Tricuspid Valve Normal tricuspid valve. Mild tricuspid valve insufficiency. Aortic Valve Normal aortic valve. Pulmonic Valve The pulmonic valve is not well visualized. Great Vessels Normal aortic root. Pericardium/Pleural No pericardial effusion. MMode/2D Measurements & Calculations LVIDd: 4.8 cm IVSd: 1.1 cm Ao root diam: 3.2 cm LVIDs: 3.8 cm LVPWd: 1.0 cm RVDd: 2.9 cm FS: 20.5 % LAV(MOD-bp): 50.3 ml LVAd ap4: 35.5 cm2 SV(MOD-sp4): 46.4 ml LAV(MOD-bp) Indexed: 26.3 ml/m2 LVLd ap4: 9.1 cm LAV(MOD-sp2): 48.2 ml EDV(MOD-sp4): 111.6 ml LAV(MOD-sp4): 48.1 ml EDV(sp4-el): 117.4 ml LVAs ap4: 25.4 cm2 LVLs ap4: 7.9 cm ESV(MOD-sp4): 65.1 ml ESV(sp4-el): 68.7 ml EF(MOD-sp4): 41.6 % EF(sp4-el): 41.5 % SV(sp4-el): 48.7 ml LA A4 area: 18.4 cm2 LA dimension(2D): 2.9 cm RA A4 area: 15.5 cm2 Time Measurements MV dec time: 0.23 sec Doppler Measurements & Calculations MV E max dionisio: 92.9 cm/sec Lat Peak E' Dionisio: 10.0 cm/sec Med Peak E' Dionisio: 7.9 cm/sec MV A max dionisio: 106.5 cm/sec E/E' lat: 9.3 E/E' med: 11.8 MV E/A: 0.87 Ao V2 max: 143.5 cm/sec LV V1 max: 106.2 cm/sec PA V2 max: 94.1 cm/sec Ao max P.2 mmHg LV V1 max P.5 mmHg TR max dionisio: 250.9 cm/sec TR max P.2 mmHg ECHO/Echo Complete Interpretation Summary The estimated ejection fraction is 40% Moderate LV Systolic Dysfunction Mahesh-apical and distal septal Hypokinesia Ordering Physician: Irasema Barraza Referring Physician: NOVA BRITT Performed By: Eileen Mars RDCS
--- NOTE | 2021-08-30 12:00 | CASEMGMT ---
RN CM Face to Face with patient for initial transition planning/care coordination assessment. RN CM introduced self and role at [facility]. Patient lying in bed, alert and oriented, girlfriend at bedside. Patient willing to participate in assessment and is able to answer all questions appropriately. Care providers, pharmacy, and demographics verified. Patient wishes to discharge home, denies need for home health at this time. Patient states he has no further needs or concerns at this time. CM to follow for discharge planning needs that may arise. PCP: Ester Palencia Specialists: none Preferred Pharmacy: [facility] [place] Insurance: none Prescription Benefit: none, Brilinta savings card provided to patient Living Will/HPOA: none, interested in information, SW updated LNOK: lucia, girlfriend Living Arrangements: Patient lives alone in a 2 story home. Patient is independent and able to ambulate stairs. Transportation: self, girlfriend, daughter DME/HHC: Patient states he has raised toilet and grab bars at home. No previous HHC or SNF Disposition Plan: Patient to discharge home with family support and follow-up plans in place. Ratna ROCKWELL, RN, CM
--- NOTE | 2021-08-30 12:27 | PCM.PN.HOSP ---
Subjective Subjective Follow-up on NSTEMI: Patient was seen and examined. No acute events. He denies any chest pain, dizziness, palpitations. Objective Data Objective Data Vital Signs: Vital Signs Temp Pulse Resp BP Pulse Ox 97.1 F L 63 16 99/65 100 08/30/21 10:49 08/30/21 10:49 08/30/21 10:49 08/30/21 10:49 08/30/21 10:49 Oxygen Delivery Method Room Air Weight: 74.4 kg Body Mass Index (BMI) 23.5 Intake & Output: Intake and Output for Last 24 Hours 08/28/21 08/29/21 08/30/21 23:59 23:59 23:59 Intake Total 611.98 / 611.98 1381.32 / 1381.32 Balance 611.98 / 611.98 1381.32 / 1381.32 Lab / Micro Data Result Diagrams: 08/30/21 03:26 08/30/21 03:26 Labs: Laboratory Results - last 24 hr 08/29/21 14:35: WBC 10.4, RBC 4.51 L, Hgb 13.2, Hct 39.8 L, MCV 88.2, MCH 29.3, MCHC 33.2, RDW Std Deviation 46.5 H, RDW Coeff of Anthony 14.5, Plt Count 214, MPV 10.4, Immature Gran % (Auto) 0.300, Neut % (Auto) 54.0, Lymph % (Auto) 32.7, [place] % (Auto) 12.3 H, Eos % (Auto) 0.3, Baso % (Auto) 0.4, Absolute Neuts (auto) 5.6, Absolute Lymphs (auto) 3.41, Nucleated RBC % 0 08/29/21 14:35: Sodium 136, Potassium 3.9, Chloride 105, Carbon Dioxide 26.0, Anion Gap 5, BUN 18, Creatinine 1.13, Estim Creat Clear Calc 67.78, Est GFR (MDRD) Af Amer 84, Est GFR (MDRD) Non-Af 70, BUN/Creatinine Ratio 15.9, Glucose 102, Calcium 9.0, Troponin I High Sens [id number] H* 08/29/21 14:35: PT 13.5, INR 1.1, APTT 26.6 08/29/21 14:35: Hemoglobin A1c 5.8 H 08/29/21 17:00: Troponin I High Sens [id number] H* 08/29/21 20:55: Troponin I High Sens [id number] H* 08/30/21 03:26: WBC 8.2, RBC 3.87 L, Hgb 11.6 L, Hct 34.2 L, MCV 88.4, MCH 30.0, MCHC 33.9, RDW Std Deviation 47.2 H, RDW Coeff of Anthony 14.6, Plt Count 188, MPV 10.5, Immature Gran % (Auto) 0.200, Neut % (Auto) 51.0, Lymph % (Auto) 37.0, [place] % (Auto) 10.4 H, Eos % (Auto) 1.0, Baso % (Auto) 0.4, Absolute Neuts (auto) 4.2, Absolute Lymphs (auto) 3.03, Nucleated RBC % 0 08/30/21 03:26: Sodium 136, Potassium 3.6, Chloride 105, Carbon Dioxide 25.0, Anion Gap 6, BUN 21 H, Creatinine 0.97, Estim Creat Clear Calc 81.53, Est GFR (MDRD) Af Amer 100, Est GFR (MDRD) Non-Af 83, BUN/Creatinine Ratio 21.6 H, Glucose 137 H, Calcium 8.0 L, Total Bilirubin 0.30, AST 135 H, ALT 77 H, Alkaline Phosphatase 72, Total Protein 6.0 L, Albumin 2.7 L, Globulin 3.3, Albumin/Globulin Ratio 0.8 L Physical Exam Narrative Physical exam: General: Alert, Oriented x3, Cooperative, No apparent distress HEENT: Atraumatic Oral: Moist Mucosa Neck: Supple Lungs: Clear to auscultation Cardiovascular: HS I+II, regular, no murmurs Abdomen: Bowel Sounds Present, Soft, Non Tender Extremities: No edema Skin: No rashes, No breakdown Neurological: Grossly intact Psych/Mental Status: Appropriate Assessment & Plan Assessment/Plan (1) Non-ST elevated myocardial infarction (non-STEMI): (2) Elevated troponin: PLAN: Plan 1. Acute NSTEMI/unstable angina, in a chronic smoker Status post emergent cardiac catheterization and findings showed subtotal mid LAD as well as 90% stenosis of the left circumflex Status post FACUNDO to left circumflex and 2 FACUNDO to the LAD Continue on aspirin, Brilinta, statin, ENRIQUE inhibitor, beta-lara 2D echo pending. Cardiology following 2. Hyperlipidemia, continue on statin 3. Nicotine dependence, on replacement 4. DVT PPx- SCDs Charges/Coding Visit Charges Inpatient E&M: 12281 Subs Hosp L2
--- NOTE | 2021-08-30 12:53 | PN.CARD_ITS ---
Documented by User: Irasema RAY, CORY 08/30/21 12:57 Subjective Subjective Patient has not had any chest pain, he is not short of breath. He does not have any complaints. Objective Data Vital Signs: Vital Signs Temp Pulse Resp BP Pulse Ox 97.1 F L 63 16 99/65 100 08/30/21 10:49 08/30/21 10:49 08/30/21 10:49 08/30/21 10:49 08/30/21 10:49 Oxygen Delivery Method Room Air Weight: 164 lb 0.383 oz Body Mass Index (BMI) 23.5 Intake & Output: Intake and Output for Last 24 Hours 08/28/21 08/29/21 08/30/21 23:59 23:59 23:59 Intake Total 611.98 / 611.98 1381.32 / 1381.32 Balance 611.98 / 611.98 1381.32 / 1381.32 Lab / Micro Data Result Diagrams: 08/30/21 03:26 08/30/21 03:26 Labs: Laboratory Results - last 24 hr 08/29/21 14:35: WBC 10.4, RBC 4.51 L, Hgb 13.2, Hct 39.8 L, MCV 88.2, MCH 29.3, MCHC 33.2, RDW Std Deviation 46.5 H, RDW Coeff of Anthony 14.5, Plt Count 214, MPV 10.4, Immature Gran % (Auto) 0.300, Neut % (Auto) 54.0, Lymph % (Auto) 32.7, M cheng % (Auto) 12.3 H, Eos % (Auto) 0.3, Baso % (Auto) 0.4, Absolute Neuts (auto) 5.6, Absolute Lymphs (auto) 3.41, Nucleated RBC % 0 08/29/21 14:35: Sodium 136, Potassium 3.9, Chloride 105, Carbon Dioxide 26.0, Anion Gap 5, BUN 18, Creatinine 1.13, Estim Creat Clear Calc 67.78, Est GFR (MDRD) Af Amer 84, Est GFR (MDRD) Non-Af 70, BUN/Creatinine Ratio 15.9, Glucose 102, Calcium 9.0, Troponin I [place] Sens 34134 H* 08/29/21 14:35: PT 13.5, INR 1.1, APTT 26.6 08/29/21 14:35: Hemoglobin A1c 5.8 H 08/29/21 17:00: Troponin I [place] Sens [id number] H* 08/29/21 20:55: Troponin I High Sens 33507 H* 08/30/21 03:26: WBC 8.2, RBC 3.87 L, Hgb 11.6 L, Hct 34.2 L, MCV 88.4, MCH 30.0, MCHC 33.9, RDW Std Deviation 47.2 H, RDW Coeff of Anthony 14.6, Plt Count 188, MPV 10.5, Immature Gran % (Auto) 0.200, Neut % (Auto) 51.0, Lymph % (Auto) 37.0, [place] % (Auto) 10.4 H, Eos % (Auto) 1.0, Baso % (Auto) 0.4, Absolute Neuts (auto) 4.2, Absolute Lymphs (auto) 3.03, Nucleated RBC % 0 08/30/21 03:26: Sodium 136, Potassium 3.6, Chloride 105, Carbon Dioxide 25.0, Anion Gap 6, BUN 21 H, Creatinine 0.97, Estim Creat Clear Calc 81.53, Est GFR (MDRD) Af Amer 100, Est GFR (MDRD) Non-Af 83, BUN/Creatinine Ratio 21.6 H, Glucose 137 H, Calcium 8.0 L, Total Bilirubin 0.30, AST 135 H, ALT 77 H, Alkaline Phosphatase 72, Total Protein 6.0 L, Albumin 2.7 L, Globulin 3.3, Albumin/Globulin Ratio 0.8 L Rhythm Strip Rhythm Strip: Sinus Rhythm Cardiology Labs/Tests 08/29/21 14:35: WBC 10.4, RBC 4.51 L, Hgb 13.2, Hct 39.8 L, MCV 88.2, MCH 29.3, MCHC 33.2, Plt Count 214, MPV 10.4, Immature Gran % (Auto) 0.300, Neut % (Auto) 54.0, Lymph % (Auto) 32.7, [place] % (Auto) 12.3 H, Eos % (Auto) 0.3, Baso % (Auto) 0.4, Absolute Neuts (auto) 5.6, Nucleated RBC % 0 08/29/21 14:35: Sodium 136, Potassium 3.9, Chloride 105, Carbon Dioxide 26.0, Anion Gap 5, BUN 18, Creatinine 1.13, Est GFR (MDRD) Af Amer 84, Est GFR (MDRD) Non-Af 70, BUN/Creatinine Ratio 15.9, Glucose 102, Calcium 9.0 08/29/21 14:35: PT 13.5, INR 1.1, APTT 26.6 08/29/21 14:35: Hemoglobin A1c 5.8 H 08/30/21 03:26: WBC 8.2, RBC 3.87 L, Hgb 11.6 L, Hct 34.2 L, MCV 88.4, MCH 30.0, MCHC 33.9, Plt Count 188, MPV 10.5, Immature Gran % (Auto) 0.200, Neut % (Auto) 51.0, Lymph % (Auto) 37.0, [place] % (Auto) 10.4 H, Eos % (Auto) 1.0, Baso % (Auto) 0.4, Absolute Neuts (auto) 4.2, Nucleated RBC % 0 08/30/21 03:26: Sodium 136, Potassium 3.6, Chloride 105, Carbon Dioxide 25.0, Anion Gap 6, BUN 21 H, Creatinine 0.97, Est GFR (MDRD) Af Amer 100, Est GFR (MDRD) Non-Af 83, BUN/Creatinine Ratio 21.6 H, Glucose 137 H, Calcium 8.0 L, Total Bilirubin 0.30 ECHO:pending Physical Exam Const alert, oriented x3, no apparent distress and healthy appearing HEENT normocephalic, head/scalp atraumatic, hearing grossly normal bilaterally, external ears normal, external nose normal and moist oral mucous membranes Eyes PERRL, EOMs intact bilaterally, conjunctivae normal and no scleral icterus Neck no lymphadenopathy, supple and no JVD Resp normal respiratory effort and clear to auscultation bilaterally Cardio regular rate, regular rhythm, S1 normal heart sound, S2 normal heart sound, no murmurs, no rub, no gallops, no clicks, no JVD and peripheral pulses 2+ throughout GI normal to inspection, nondistended, normoactive bowel sounds, soft to palpation, non-tender and non-distended Extremity normal to inspection, normal capillary refill, no clubbing, cyanosis or edema and no pedal edema Neuro oriented x3, CN's II-XII intact bilaterally, moves all extremities and no focal motor deficits Psych cooperative and affect normal Assessment & Plan Assessment/Plan (1) Non-ST elevated myocardial infarction (non-STEMI): (2) Elevated troponin: (3) Hyperlipidemia: PLAN: Plan * Troponins are trending downwards do not need to continue to monitor, however with the significant elevation of his enzymes and his significant lesion of his LAD would like to continue to monitor patient overnight * Echocardiogram is pending * Patient will continue with his aspirin, Brilinta, atorvastatin, carvedilol, lisinopril * it is noted that patient did have hyperlipidemia based on labs that were done prior to his current visit, patient was started on atorvastatin * Strongly encouraged smoking cessation * We will follow-up with patient on an outpatient basis, would also like to refer to cardiac rehab Charges/Coding Visit Charges Inpatient E&M: 67625 Subs Hosp L2 Documented by User: Dr. Dipika Amaral MD 08/30/21 13:27 Lab / Micro Data Result Diagrams: 08/30/21 03:26 08/30/21 03:26 Assessment & Plan Assessment/Plan (1) Non-ST elevated myocardial infarction (non-STEMI): (2) Elevated troponin: (3) Hyperlipidemia: PLAN: Plan * Patient seen and evaluated today along with nursing staff No events from last night noted Cardiac examination essentially normal I independently reviewed the clinical presentation, lab tests, EKGs, we will review echocardiogram today And I formulated cardiac care plan and recommendation as per midlevel documentation Troponins are trending downwards do not need to continue to monitor, however with the significant elevation of his enzymes and his significant lesion of his LAD would like to continue to monitor patient overnight * Echocardiogram is pending * Patient will continue with his aspirin, Brilinta, atorvastatin, carvedilol, lisinopril * it is noted that patient did have hyperlipidemia based on labs that were done prior to his current visit, patient was started on atorvastatin * Strongly encouraged smoking cessation * We will follow-up with patient on an outpatient basis, would also like to refer to cardiac rehab.
--- NOTE | 2021-08-30 14:41 | CASEMGMT ---
Social Work SW met with pt and introduced self and role of SW. Pt does not have health insurance. Pt is self employed. Resources given to pt including Medicaid application, Prescription assistance information, [employer] Card, physican list including Ester Pardo and [facility] financial assistance. SW also spoke with pt regarding Living Will and Health Care POA. SW explained both documents and pt is appreciative of information but wants time to consider prior to completing. Pt does have a SW Rack Card and blank Advance Directives. SW will remain available should further needs arise. JARETH Fletcher
--- NOTE | 2021-08-30 17:00 | EKG12_ITS ---
Test Reason : NSTEMI Blood Pressure : / mmHG Vent. Rate : 064 BPM Atrial Rate : 064 BPM P-R Int : 136 ms QRS Dur : 088 ms QT Int : 428 ms P-R-T Axes : 060 -13 096 degrees QTc Int : 441 ms Normal sinus rhythm with sinus arrhythmia Low voltage QRS Anteroseptal [place], age undetermined ST & T wave abnormality, consider lateral ischemia Abnormal ECG Confirmed by WHIT NIEVES, ANGELICA ([id number]), editor in chief newspaper AKILAH WHEATLEY ([id number]) on 09/03/2021 8:32:18 AM Referred By: BARBARA Confirmed By:ANGELICA SHERMAN MD
[2021-08-30] MEDS: Atorvastatin Calcium 40 MG Tablet PO (21:10)
[2021-08-30] MEDS: TICAGRELOR 90 MG TABLET PO (21:10)
[2021-08-30] MEDS: 0.9% Saline Lock 10 ML Syringe IV (21:11)
[2021-08-30] MEDS: Zolpidem Tartrate 5 MG Tablet PO (22:15)
[2021-08-31] VITALS (11 sets, daily range): BP systolic 87–113; BP diastolic 55–82; PULSE 58–69; RESP 14–19; TEMP 36.6–37.4; O2SAT 93–94
[2021-08-31 04:19] LABS: Absolute Lymphocyte Count 2.53 X10^3/uL (0.83-4.51); Absolute Neutrophil Count 3.4 X10^3/uL (2.0-7.7); Basophil# 0.03 X10^3/uL; Basophil% 0.4 % (0-1); Eosinophils% 1.5 % (0-5); Hematocrit 32.3 % (40-54); Hemoglobin 10.7 g/dL (13.0-16.5); Lymphocyte # 2.53 X10^3/ul (0.83-4.51); Lymphocyte % 37.4 % (19-41); Mean Corp Hgb Conc 33.1 g/dL (32-36); Mean Corpuscular Hgb 29.4 pg (27.0-32.0); Mean Corpuscular Volume 88.7 fL (80-94); Mean Platelet Vol. 10.6 fl (6.2-12.0); Monocyte# 0.67 X10^3/uL; Monocyte% 9.9 % (0-10); NRBC Flagged by Analyzer 0 % (0-5); Neutrophil # 3.42 X10^3/uL (2.7-7.7); Neutrophil % 50.5 % (47-70); Platelet Count 189 K/mm3 (150-450); RBC Distribution Width CV 14.6 % (11.6-14.6); RBC Distribution Width SD 47.5 fl (35.1-43.9); Red Blood Count 3.64 M/mm3 (4.6-6.2); White Blood Count 6.8 K/mm3 (4.4-11.0)
[2021-08-31 04:59] LABS: ALB/GLOB Ratio 0.8 RATIO (0.9-2.4); AST(SGOT) 91 U/L (15-37); Alanine Aminotransfer ALT/SGPT 92 U/L (16-61); Albumin, Serum 2.6 g/dL (3.2-5.0); Alkaline Phosphatase 77 U/L (45-117); Anion Gap 6 (5-15); BUN 18 mg/dL (7-18); BUN/Creat Ratio 17.6 RATIO (10-20); Calcium,Total 8.3 mg/dL (8.5-10.1); Chloride 107 mmol/L (98-107); Creatinine, Serum 1.02 mg/dL (0.70-1.30); EST Glomerular Filtration Rate 78 mL/min (>60); Est Glom Filt Rate - Afr Amer 95 mL/min (>60); Estimated Creatinine Clearance 77.53 ml/min; Globulin 3.2 g/dL (2.2-4.2); Glucose 125 mg/dL (74-106); Potassium 3.8 mmol/L (3.5-5.1); Protein, Total 5.8 g/dL (6.4-8.2); Sodium Level 138 mmol/L (136-145)
[2021-08-31] MEDS: Aspirin E.C. 81 MG Tablet PO (07:54)
[2021-08-31] MEDS: Lisinopril 2.5 MG Tablet PO (07:55)
[2021-08-31] MEDS: Carvedilol 3.125 MG TABLET PO (07:55)
[2021-08-31] MEDS: TICAGRELOR 90 MG TABLET PO (07:55)
--- NOTE | 2021-08-31 10:27 | PCM.PN.CARD ---
Documented by User: CORY Coyle 08/31/21 10:33 Subjective Subjective Patient has not had any chest pain, he is not short of breath. He does not have any complaints. Did walk around the halls, he did not have any issues although he does state that he feels slightly more fatigued than when he did prior to his admission Objective Data Vital Signs: Vital Signs Temp Pulse Resp BP Pulse Ox 97.9 F 64 19 H 106/82 H 94 08/31/21 09:00 08/31/21 09:00 08/31/21 09:00 08/31/21 09:00 08/31/21 09:00 Oxygen Delivery Method Room Air Weight: 168 lb 10.458 oz Body Mass Index (BMI) 23.5 Intake & Output: Intake and Output for Last 24 Hours 08/29/21 08/30/21 08/31/21 23:59 23:59 23:59 Intake Total 611.98 / 611.98 1621.32 / 1621.32 480 / 480 Balance 611.98 / 611.98 1621.32 / 1621.32 480 / 480 Lab / Micro Data Result Diagrams: 08/31/21 04:10 08/31/21 04:10 Labs: Laboratory Results - last 24 hr 08/31/21 04:10: WBC 6.8, RBC 3.64 L, Hgb 10.7 L, Hct 32.3 L, MCV 88.7, MCH 29.4, MCHC 33.1, RDW Std Deviation 47.5 H, RDW Coeff of Anthony 14.6, Plt Count 189, MPV 10.6, Immature Gran % (Auto) 0.300, Neut % (Auto) 50.5, Lymph % (Auto) 37.4, [place] % (Auto) 9.9, Eos % (Auto) 1.5, Baso % (Auto) 0.4, Absolute Neuts (auto) 3.4, Absolute Lymphs (auto) 2.53, Nucleated RBC % 0 08/31/21 04:10: Sodium 138, Potassium 3.8, Chloride 107, Carbon Dioxide 25.0, Anion Gap 6, BUN 18, Creatinine 1.02, Estim Creat Clear Calc 77.53, Est GFR (MDRD) Af Amer 95, Est GFR (MDRD) Non-Af 78, BUN/Creatinine Ratio 17.6, Glucose 125 H, Calcium 8.3 L, Total Bilirubin 0.30, AST 91 H, ALT 92 H, Alkaline Phosphatase 77, Total Protein 5.8 L, Albumin 2.6 L, Globulin 3.2, Albumin/Globulin Ratio 0.8 L Rhythm Strip Rhythm Strip: Sinus Rhythm Cardiology Labs/Tests 08/31/21 04:10: WBC 6.8, RBC 3.64 L, Hgb 10.7 L, Hct 32.3 L, MCV 88.7, MCH 29.4, MCHC 33.1, Plt Count 189, MPV 10.6, Immature Gran % (Auto) 0.300, Neut % (Auto) 50.5, Lymph % (Auto) 37.4, [place] % (Auto) 9.9, Eos % (Auto) 1.5, Baso % (Auto) 0.4, Absolute Neuts (auto) 3.4, Nucleated RBC % 0 08/31/21 04:10: Sodium 138, Potassium 3.8, Chloride 107, Carbon Dioxide 25.0, Anion Gap 6, BUN 18, Creatinine 1.02, Est GFR (MDRD) Af Amer 95, Est GFR (MDRD) Non-Af 78, BUN/Creatinine Ratio 17.6, Glucose 125 H, Calcium 8.3 L, Total Bilirubin 0.30 Radiography Diagnostic Testing: Radiology Impression Echocardiogram 08/30/21 11:50 Interpretation Summary The estimated ejection fraction is 40% Moderate LV Systolic Dysfunction Mahesh-apical and distal septal Hypokinesia Ordering Physician: Irasema Barraza Referring Physician: NOVA BRITT Performed By: Eileen Mars, RDKARINA Physical Exam Const alert, oriented x3, no apparent distress and healthy appearing HEENT normocephalic, head/scalp atraumatic, hearing grossly normal bilaterally, external ears normal, external nose normal and moist oral mucous membranes Eyes PERRL, EOMs intact bilaterally, conjunctivae normal and no scleral icterus Neck no lymphadenopathy, supple and no JVD Resp normal respiratory effort and clear to auscultation bilaterally Cardio regular rate, regular rhythm, S1 normal heart sound, S2 normal heart sound, no murmurs, no rub, no gallops, no clicks, no JVD and peripheral pulses 2+ throughout GI normal to inspection, nondistended, normoactive bowel sounds, soft to palpation, non-tender and non-distended Extremity normal to inspection, normal capillary refill, no clubbing, cyanosis or edema and no pedal edema Neuro oriented x3, CN's II-XII intact bilaterally, moves all extremities and no focal motor deficits Psych cooperative and affect normal Assessment & Plan Assessment/Plan (1) Non-ST elevated myocardial infarction (non-STEMI): (2) Elevated troponin: (3) Hyperlipidemia: (4) Decreased left ventricular function: PLAN: Plan Echocardiogram demonstrated a decreased EF of 40%. Will plan on repeating this in 3 months. Will continue with his carvedilol and lisinopril. Do not feel that this can be increased at this time d/t HR and BP. Patient will continue with his aspirin, Brilinta, atorvastatin, carvedilol, lisinopril it is noted that patient did have hyperlipidemia based on labs that were done prior to his current visit, patient was started on atorvastatin Strongly encouraged smoking cessation We will follow-up with patient on an outpatient basis, would also like to refer to cardiac rehab, however since he is self pay not sure if this will be possible for patient. Charges/Coding Visit Charges Inpatient E&M: 97859 Subs Hosp L2 Documented by User: Dr. Dipika Amaral MD 08/31/21 11:33 Lab / Micro Data Result Diagrams: 08/31/21 04:10 08/31/21 04:10 Assessment & Plan Assessment/Plan (1) Non-ST elevated myocardial infarction (non-STEMI): (2) Elevated troponin: (3) Hyperlipidemia: (4) Decreased left ventricular function: PLAN: Plan I independently examined this patient, reviewed the current data including imaging studies echo, cardiac telemetry, current lab tests and medication And agree with the documentation by the midlevel. I explained to the patient in detail the importance of lifestyle change with cessation of smoking and compliance with current cardiac medication. Patient will follow up on medical therapy with [facility] cardiology team. Echocardiogram demonstrated a decreased EF of 40%. Will plan on repeating this in 3 months. Will continue with his carvedilol and lisinopril. Do not feel that this can be increased at this time d/t HR and BP. Patient will continue with his aspirin, Brilinta, atorvastatin, carvedilol, lisinopril it is noted that patient did have hyperlipidemia based on labs that were done prior to his current visit, patient was started on atorvastatin Strongly encouraged smoking cessation We will follow-up with patient on an outpatient basis, would also like to refer to cardiac rehab, however since he is self pay not sure if this will be possible for patient.
== END 2021-08-31 10:10 | disposition home or self-care (01) | DRG 247 ==
LOC: ED 14:47 → ICU 18:02
PROVIDERS: Admitting Provider Internal Medicine; Emergency Provider Emergency Medicine; Visit Provider Internal Medicine
DX: I21.4 Non-ST elevation (NSTEMI) myocardial infarction (principal); E78.5 Hyperlipidemia, unspecified; I20.0 Unstable angina; F17.210 Nicotine dependence, cigarettes, uncomplicated; I70.90 Unspecified atherosclerosis; I25.2 Old myocardial infarction; Z79.02 Long term (current) use of antithrombotics/antiplatelets; Z79.82 Long term (current) use of aspirin; R77.8 Other specified abnormalities of plasma proteins
CPT/HCPCS: 80048; 80053; 83036; 84484; 85025; 85027; 85610; 85730; 92928; 93005; 93306; 93454; 97161; 97165; 97802; 99152; 99153; 99285; C1874; J7030; Q9967; A4216; C1725; C1769; C1887; C1894; C9600; J1327

== ENCOUNTER → 2021-08-29 | Outpatient (CLI) | payer SELFPAY ==
--- NOTE | 2021-08-29 11:51 | EKG12_ITS ---
Test Reason : ROUTINE Blood Pressure : / mmHG Vent. Rate : 063 BPM Atrial Rate : 063 BPM P-R Int : 132 ms QRS Dur : 084 ms QT Int : 428 ms P-R-T Axes : 050 023 125 degrees QTc Int : 437 ms Normal sinus rhythm Septal infarct , age undetermined T wave abnormality, consider anterolateral ischemia Abnormal ECG Confirmed by WHIT NIEVES, ANGELICA ([id number]), graphic editor AKILAH WHEATLEY ([id number]) on 08/30/2021 10:26:50 AM Referred By: [facility] Confirmed By:ANGELICA SHERMAN MD
[2021-08-29 12:29] LABS: Cholesterol 237 mg/dL (200); High Density Lipoprotein 47 mg/dL; Triglycerides 111 mg/dL; Troponin-I HS 34712 pg/mL (3.0-78.0); Very Low Density Lipoprotein 22 mg/dL (5-40)
== END | disposition home or self-care (01) ==
DX: R07.9 Chest pain, unspecified (principal); Z13.220 Encounter for screening for lipoid disorders
CPT/HCPCS: 36415; 80061; 84484; 93005

== ENCOUNTER → 2021-08-29 | Outpatient (CLI) | payer SELFPAY | END | disposition home or self-care (01) | LOC: PSN 11:49 | PROVIDERS: Referring Provider Nurse Practitioner Adult Health; Visit Provider Nurse Practitioner Adult Health | DX: R07.9 Chest pain, unspecified (principal) | CPT/HCPCS: J7040; J1327 ==

== ENCOUNTER → 2021-12-12 | Outpatient (CLI) | payer SELFPAY ==
--- NOTE | 2021-12-12 09:27 | ECHOL_ITS ---
Reason For Study: CHF Procedure This was a limited 2D transthoracic echocardiogram. Limited views were obtained. Exam performed in department. Left Ventricle Normal LV size. Moderate segmental systolic dysfunction (see wall motion). The estimated ejection fraction is 35 %. Unable to assess diastolic dysfunction. Anterio-Basal: Hypokinetic. Infero-Basal: Hypokinetic. Mid-Anterior : Akinetic. Mid-Lateral : Hypokinetic. Mid-Posterior: Hypokinetic. Mid- Inferior: Hypokinetic. Mid-inferoseptal : Akinetic. Mid-anteroseptal : Akinetic. [place] : Akinetic. Right Ventricle Normal RV size. Normal systolic function. Atria Normal left atrium. Normal right atrium. Mitral Valve There is no mitral annular calcification. Normal mitral valve. Tricuspid Valve Normal tricuspid valve. Aortic Valve Trisinus/trileaflet aortic valve. Normal aortic valve. Pulmonic Valve The pulmonic valve is not well visualized. Pericardium/Pleural No pericardial effusion. MMode/2D Measurements & Calculations LVIDd: 4.4 cm IVSd: 1.1 cm LAV(MOD-bp): 56.1 ml LVIDs: 3.7 cm LVPWd: 1.5 cm LAV(MOD-bp) Indexed: 29.5 ml/m2 RVDd: 2.8 cm FS: 15.6 % LAV(MOD-sp2): 50.6 ml LAV(MOD-sp4): 59.8 ml LVAd ap4: 37.0 cm2 SV(MOD-sp4): 60.4 ml SV(sp4-el): 64.5 ml LVLd ap4: 9.6 cm EDV(MOD-sp4): 116.3 ml EDV(sp4-el): 121.2 ml LVAs ap4: 23.2 cm2 LVLs ap4: 8.1 cm ESV(MOD-sp4): 55.9 ml ESV(sp4-el): 56.7 ml EF(MOD-sp4): 52.0 % EF(sp4-el): 53.2 % LA A4 area: 19.0 cm2 LA dimension(2D): 3.5 cm RA A4 area: 14.2 cm2 ECHO/Echo, Limited Study Interpretation Summary Limited views were obtained. Moderate segmental systolic dysfunction (see wall motion). The estimated ejection fraction is 35 %. Unable to assess diastolic dysfunction. Ordering Physician: Irasema Barraza Referring Physician: Irasema Barraza Performed By: Leora Seals RCS
== END | disposition home or self-care (01) ==
PROVIDERS: Referring Provider Physician Assistant Medical; Visit Provider Physician Assistant Medical
DX: I25.10 Atherosclerotic heart disease of native coronary artery without angina pectoris (principal); I51.9 Heart disease, unspecified; E78.5 Hyperlipidemia, unspecified
CPT/HCPCS: 93308

== ENCOUNTER → 2022-12-30 | Outpatient (CLI) | payer OTHER, SELFPAY ==
--- NOTE | 2022-12-30 14:28 | ECHOD_ITS ---
Reason For Study: CARDIOMYOPATHY Procedure This was a 2D Doppler, Color Flow transthoracic echocardiogram. Exam performed in department. Left Ventricle Normal LV size. The left ventricular ejection fraction is 35 %. Moderately severe segmental systolic dysfunction (see wall motion). There are regional wall motion abnormalities as specified. [place] : Akinetic. Lateral [place] : Akinetic. Mid-anteroseptal : Akinetic. Mid-Lateral : Hypokinetic. Anterio- Basal: Normal. Basal inferoseptal: Normal. Lateral-Basal: Normal. Posterior-Basal: Mildly hypokinetic. Mid-Posterior: Normal. Right Ventricle Normal RV size. Normal systolic function. Atria Normal left atrium. Normal right atrium. Mitral Valve Normal mitral valve. Tricuspid Valve Normal tricuspid valve. Mild (1+) tricuspid valve insufficiency. Pulmonary artery systolic pressure is 28 mmHg. Great Vessels Mildly dilated aortic root. Pericardium/Pleural No pericardial effusion. MMode/2D Measurements & Calculations LVIDd: 5.1 cm IVSd: 0.90 cm Ao root diam: 3.8 cm LVIDs: 4.3 cm LVPWd: 0.99 cm FS: 15.5 % LAV(MOD-bp): 45.8 ml SV(MOD-sp4): 49.8 ml LVAd ap4: 36.6 cm2 LAV(MOD-bp) Indexed: 23.8 ml/m2 LVLd ap4: 8.8 cm LAV(MOD-sp2): 45.7 ml EDV(MOD-sp4): 123.1 ml LAV(MOD-sp4): 42.4 ml EDV(sp4-el): 129.5 ml LVAs ap4: 26.0 cm2 LVLs ap4: 7.6 cm ESV(MOD-sp4): 73.3 ml ESV(sp4-el): 75.0 ml EF(MOD-sp4): 40.4 % EF(sp4-el): 42.1 % SV(sp4-el): 54.5 ml LA dimension(2D): 3.3 cm LA A4 area: 15.1 cm2 TAPSE: 2.0 cm RA A4 area: 10.9 cm2 Doppler Measurements & Calculations Lat Peak E' Dionisio: 7.8 cm/sec Med Peak E' Dionisio: 7.0 cm/sec MV V2 max: 114.8 cm/sec MV max P.3 mmHg MV V2 mean: 51.2 cm/sec MV mean P.4 mmHg MV V2 VTI: 28.2 cm Ao V2 max: 110.4 cm/sec LV V1 max: 104.9 cm/sec PA V2 max: 82.7 cm/sec Ao max P.9 mmHg LV V1 max P.4 mmHg PA V2 mean: 60.1 cm/sec Ao V2 mean: 83.0 cm/sec LV V1 mean P.4 mmHg Ao mean P.1 mmHg LV V1 mean: 72.7 cm/sec Ao V2 VTI: 26.9 cm LV V1 VTI: 23.5 cm AV (velocity ratio): 0.87 TR max dionisio: 243.9 cm/sec TR max P.8 mmHg ECHO/Echo Complete Interpretation Summary Normal LV size. The left ventricular ejection fraction is 35 %. Pulmonary artery systolic pressure is 28 mmHg. Moderately severe segmental systolic dysfunction (see wall motion). Compared to previous study, the left ventricular systolic function is the same. . Ordering Physician: Irasema Barraza Referring Physician: [facility] Performed By: Stephani Szymanski, DILIP, RVT
== END | disposition home or self-care (01) ==
PROVIDERS: Referring Provider Physician Assistant Medical; Visit Provider Physician Assistant Medical
DX: I25.10 Atherosclerotic heart disease of native coronary artery without angina pectoris (principal); I25.5 Ischemic cardiomyopathy; E78.5 Hyperlipidemia, unspecified
CPT/HCPCS: 93306

== ENCOUNTER → 2023-05-22 | Outpatient (CLI) | payer OTHER, SELFPAY ==
[2023-05-22 15:10] LABS: AST(SGOT) 19 U/L (15-37); Alanine Aminotransfer ALT/SGPT 31 U/L (16-61); Albumin, Serum 3.5 g/dL (3.2-5.0); Alkaline Phosphatase 68 U/L (45-117); Anion Gap 4 (5-15); BUN 25 mg/dL (7-18); Bilirubin, Direct 0.14 mg/dL (0.00-0.30); Calcium,Total 8.7 mg/dL (8.5-10.1); Chloride 106 mmol/L (98-107); Cholesterol 166 mg/dL (200); Creatinine, Serum 1.67 mg/dL (0.70-1.30); EST Glomerular Filtration Rate 44 mL/min (>60); Est Glom Filt Rate - Afr Amer 53 mL/min (>60); Globulin 3.5 g/dL (2.2-4.2); Glucose 148 mg/dL (74-106); High Density Lipoprotein 40 mg/dL; Potassium 4.6 mmol/L (3.5-5.1); Sodium Level 139 mmol/L (136-145); Triglycerides 198 mg/dL; Very Low Density Lipoprotein 40 mg/dL (5-40)
== END | disposition home or self-care (01) ==
PROVIDERS: Referring Provider Physician Assistant Medical; Visit Provider Physician Assistant Medical
DX: I25.5 Ischemic cardiomyopathy (principal); E78.5 Hyperlipidemia, unspecified
CPT/HCPCS: 36415; 80053; 80061; 82248

== ENCOUNTER → 2024-10-28 | Outpatient (CLI) | payer MEDICARE, SELFPAY ==
[2024-10-28 15:05] LABS: AST(SGOT) 21 U/L (<=37); Alanine Aminotransfer ALT/SGPT 20 U/L (<=46); Albumin, Serum 4.1 g/dL (3.4-4.8); Alkaline Phosphatase 70 U/L (40-129); Bilirubin, Direct 0.20 mg/dL (0.00-0.30); Cholesterol 172 mg/dL (<=200); Globulin 2.8 g/dL (2.2-4.2); Low Density Lipoprotein Calc. 117 mg/dL; Triglycerides 66 mg/dL; Very Low Density Lipoprotein 13 mg/dL (5-40); cholesterol:hdl ratio screen 4.11
== END | disposition home or self-care (01) ==
LOC: LAB 13:50
PROVIDERS: Referring Provider Physician Assistant Medical; Visit Provider Physician Assistant Medical
DX: E78.00 Pure hypercholesterolemia, unspecified (principal)
CPT/HCPCS: 36415; 80061; 80076